=== PATIENT | female | born 1980 | race Caucasian/White ===

== ENCOUNTER 2017-04-09 12:57 | Observation (INO) | payer OTHER ==
[2017-04-09] MEDS ORDERED: HYDROmorphone 1 MG/ML 1 ML SYRINGE IVP STA (13:37)
[2017-04-09] MEDS ORDERED: ONDANSETRON 4 MG/2 ML VIAL IVP STA (13:37)
[2017-04-09] MEDS ORDERED: SODIUM CHLORIDE 0.9% 1,000 ML IV ONE (13:41)
[2017-04-09] MEDS: SODIUM CHLORIDE 0.9% 1,000 ML IV SCH (13:44)
[2017-04-09] MEDS ORDERED: ONDANSETRON 4 MG/2 ML VIAL IVP PRN (13:48)
[2017-04-09] MEDS ORDERED: HYDROmorphone 1 MG/ML 1 ML SYRINGE IV PRN (13:48)
[2017-04-09] MEDS ORDERED: NALOXONE 0.4 MG/ML 1 ML VIAL IV PRN (13:48)
--- NOTE | 2017-04-09 13:48 | ED ---
Female Urogenital HPI - General Chief complaint: OB/Uterine Contractions Stated complaint: 16 weeks /Bleeding/Abd Pain Time Seen by Provider: 04/09/17 13:20 Source: patient, RN notes reviewed, old records reviewed Mode of arrival: wheelchair Limitations: no limitations - History of Present Illness Initial comments: this is a 37-year-old female presents emergency Department chief complaint of vaginal bleeding and contractions for the past day. Patient reports this started at 10 a.m. She is currently 16 weeks . Patient ports that she is here on vacation visiting her after her mother's [facility]. Patient states that this is her third . She delivered her second at 5 months. Patient states that she was told by her HARDNESS INSPECTOR that she's had a placental tear approximately 3 weeks ago. Patient reports that she's had no fever or chills, dysuria or any other associated symptoms prior to the vaginal cramping and bleeding that started at 10 AM today. Patient does not have an OB/ INSTRUCTOR PSYCHIATRIC AIDE in the area. - Related Data Home Medications Medication Instructions Recorded Confirmed Nystatin 100,000 Unit/ml Susp 5 ml PO QID 04/09/17 04/09/17 [Mycostatin Oral Susp] Allergies Allergy/AdvReac Type Severity Reaction Status Date / Time latex Allergy Rash/Hives Verified 04/09/17 13:58 Review of Systems ROS Statement: Those systems with pertinent positive or pertinent negative responses have been documented in the HPI. ROS Other: All systems not noted in ROS Statement are negative. Past Medical History Past Medical History: No Reported History History of Any Multi-Drug Resistant Organisms: None Reported Past Surgical History: Section Past Psychological History: No Psychological Hx Reported Smoking Status: Never smoker Past Alcohol Use History: None Reported Past Drug Use History: None Reported General Exam - General Exam Comments Initial Comments: 37-year-old female. Patient appears extremely anxious and in discomfort. Limitations: no limitations General appearance: alert, in no apparent distress Head exam: Present: atraumatic, normocephalic, normal inspection Eye exam: Present: normal appearance, PERRL, EOMI. Absent: scleral icterus, conjunctival injection, periorbital swelling ENT exam: Present: normal exam, mucous membranes moist Neck exam: Present: normal inspection. Absent: tenderness, meningismus, lymphadenopathy Respiratory exam: Present: normal lung sounds bilaterally. Absent: respiratory distress, wheezes, rales, rhonchi, stridor Cardiovascular Exam: Present: regular rate, normal rhythm, normal heart sounds. Absent: systolic murmur, diastolic murmur, rubs, gallop, clicks GI/Abdominal exam: Present: soft, normal bowel sounds. Absent: distended, tenderness, guarding, rebound, rigid External exam: Absent: normal external exam Speculum exam: Absent: normal speculum exam By manual exam: Present: cervical motion tenderness, other (cervix is felt to be dilated. Appears to be foreign tissue within the vaginal canal. Speculum exam was not preformed. ). Absent: normal by manual exam Extremities exam: Present: normal inspection, full ROM, normal capillary refill. Absent: tenderness, pedal edema, joint swelling, calf tenderness Back exam: Present: normal inspection, full ROM Neurological exam: Present: alert, oriented X3, CN II-XII intact Psychiatric exam: Present: normal affect, normal mood Skin exam: Present: warm, dry, intact, normal color. Absent: rash Course Vital Signs 04/09/17 04/09/17 04/09/17 13:13 13:47 13:54 Temperature 97.6 F 98.9 F Pulse Rate 79 83 81 Respiratory 18 20 20 Rate Blood Pressure 95/51 99/53 98/57 O2 Sat by Pulse 100 97 97 Oximetry Medical Decision Making - Medical Decision Making this is a 37-year-old female presents emergency Department chief complaint of vaginal bleeding and contractions for the past day. Patient reports this started at 10 a.m. She is currently 16 weeks . Patient ports that she is here on vacation visiting her after her mother's [facility]. Patient states that this is her third . She delivered her second at 5 months. Patient states that she was told by her HARDNESS INSPECTOR that she's had a placental tear approximately 3 weeks ago. Patient reports that she's had no fever or chills, dysuria or any other associated symptoms prior to the vaginal cramping and bleeding that started at 10 AM today. mental exam she is felt to have a foreign body and patient does have cervical tenderness. Cervix appears to be dilated. Discussed this with Dr. Knight. Patient was given IV fluids and pain medication. She reports that she is feeling better. Dr. Knight discussed this with Dr. Cline agent HARDNESS INSPECTOR. Patient will be admitted upstairs to have a D&C and complete delivery of the fetus. - Lab Data Result diagrams: 04/09/17 13:35 Lab Results 04/09/17 Range/Units 13:35 WBC 19.7 H (3.8-10.6) k/uL RBC 3.72 L (3.80-5.40) m/uL Hgb 12.0 (11.4-16.0) gm/dL Hct 34.3 (34.0-46.0) % MCV 92.1 (80.0-100.0) fL MCH 32.3 (25.0-35.0) pg MCHC 35.0 (31.0-37.0) g/dL RDW 13.1 (11.5-15.5) % Plt Count 318 (150-450) k/uL Neutrophils % 87 % Lymphocytes % 8 % Monocytes % 3 % Eosinophils % 1 % Basophils % 0 % Neutrophils # 17.1 H (1.3-7.7) k/uL Lymphocytes # 1.6 (1.0-4.8) k/uL Monocytes # 0.6 (0-1.0) k/uL Eosinophils # 0.2 (0-0.7) k/uL Basophils # 0.0 (0-0.2) k/uL Disposition Clinical Impression: Miscarriage Disposition: ADMITTED IP TO THIS HOSP Condition: Good Referrals: None,Stated [Primary Care Provider] - 1-2 days Time of Disposition: 13:48
[2017-04-09 13:50] LABS: Basophils % (A) 0 %; CH 32.4; CHCM 35.3; Eosinophils # (A) 0.2 k/uL (0-0.7); Eosinophils % (A) 1 %; HCT 34.3 % (34.0-46.0); HDW 2.33; Luc # (Auto) 0.14; Luc % (Auto) 1; Lymphocytes # (A) 1.6 k/uL (1.0-4.8); Lymphocytes % (A) 8 %; MCH 32.3 pg (25.0-35.0); MCV 92.1 fL (80.0-100.0); Monocytes # (A) 0.6 k/uL (0-1.0); Monocytes % (A) 3 %; Neutrophils # (A) 17.1 k/uL (1.3-7.7); Neutrophils % (A) 87 %; RBC 3.72 m/uL (3.80-5.40); RDW 13.1 % (11.5-15.5); WBC 19.7 k/uL (3.8-10.6); WBC (Perox) 19.72
[2017-04-09 13:59] LABS: ALT 25 U/L (9-52); AST 18 U/L (14-36); Alkaline Phosphatase 84 U/L (38-126); Anion Gap 10 mmol/L; Blood Urea Nitrogen 9 mg/dL (7-17); Calcium 9.2 mg/dL (8.4-10.2); Carbon Dioxide 18 mmol/L (22-30); Chloride 108 mmol/L (98-107); Glucose 85 mg/dL (74-99); Non-African American GFR(MDRD) >60 (>60 ml/min/1.73 sqM); Potassium 3.9 mmol/L (3.5-5.1); Sodium 136 mmol/L (137-145); Total Bilirubin 0.5 mg/dL (0.2-1.3); Total Protein 6.3 g/dL (6.3-8.2)
[2017-04-09 14:34] VITALS: BMI 29.2
[2017-04-09 15:00] LABS: HCG,Quantitative Serum 28330.8 mIU/mL
--- NOTE | 2017-04-09 16:14 | P.HPOB ---
History of Present Illness H&P Date: 04/09/17 Chief Complaint: at 16 weeks vaginal bleeding and rupture of membranes This is a 37-year-old 3 [id number] at approximately 16 weeks that presented to the emergency department with complaints of rupture of membranes and vaginal bleeding. she noted the LOF this morning, while in town from [place] attending her [facility]. Patient stated upon arrival the contractions were severe and was given Dilaudid 1 mg which helped with the pain of the contractions. patient denies fevers chills nausea vomiting. she noted continued bleeding in the ED with more loss of fluid in addition. She states she recently found out she was and was told in [place] that she had a small placental tear. history is significant for a 24 week delivery of her last child 4 years ago. Review of Systems Constitutional: Reports as per HPI, Denies chills, Denies fever Past Medical History Past Medical History: No Reported History History of Any Multi-Drug Resistant Organisms: None Reported Past Surgical History: Section Past Anesthesia/Blood Transfusion Reactions: No Reported Reaction Past Psychological History: No Psychological Hx Reported Smoking Status: Current every day smoker Past Alcohol Use History: None Reported Past Drug Use History: None Reported - Past Family History Mother History Unknown: Yes Family Medical History: No Reported History Medications and Allergies Home Medications Medication Instructions Recorded Confirmed Type Nystatin 100,000 Unit/ml Susp 5 ml PO QID 04/09/17 04/09/17 History [Mycostatin Oral Susp] Allergies Allergy/AdvReac Type Severity Reaction Status Date / Time adhesive tape AdvReac Rash/Hives Verified 04/09/17 14:30 Exam Osteopathic Statement: *. No significant issues noted on an osteopathic structural exam other than those noted in the History and Physical/Consult. - Vital Signs Vital signs: Vital Signs Temp Pulse Resp BP Pulse Ox 04/09/17 14:30 98.7 F 80 18 106/82 99 04/09/17 13:54 98.9 F 81 20 98/57 97 04/09/17 13:47 83 20 99/53 97 04/09/17 13:13 97.6 F 79 18 95/51 100 Intake and Output 04/09/17 04/09/17 04/09/17 06:59 14:59 22:59 Other: Weight 68.039 kg Patient Weight 04/10/17 06:59 Weight 68.039 kg - OBG Physical Exam Breast: Not examined Abdomen: Soft nontender no guarding or rebound Abdomen: bowel sounds normal Vulva: No lesions Vulva: right: normal Vagina: Blood was noted in the vaginal vault fetus was noted in the vagina Cervix: Cervix was dilated to approximately 5 cm Uterus: Uterus was nontender and noted to be approximately 16 weeks size Adnexa: Not examined Results Result Diagrams: 04/09/17 13:35 04/09/17 13:35 Abnormal Lab Results - Last 24 Hours (Table) 04/09/17 04/09/17 Range/Units 13:35 13:35 WBC 19.7 H (3.8-10.6) k/uL RBC 3.72 L (3.80-5.40) m/uL Neutrophils # 17.1 H (1.3-7.7) k/uL Sodium 136 L (137-145) mmol/L Chloride 108 H (98-107) mmol/L Carbon Dioxide 18 L (22-30) mmol/L Albumin 3.4 L (3.5-5.0) g/dL Assessment and Plan (1) Complete Status: Acute Plan: Patient is admitted to labor and delivery Blood type is O+ program not indicated Discussion with the patient about the possibility of retained placenta and need for D&C Time with Patient: Greater than 30
[2017-04-09] MEDS ORDERED: MISOPROSTOL 200 MCG TAB PO STA (16:48)
[2017-04-09] MEDS ORDERED: MISOPROSTOL 200 MCG TAB VAGINAL STA (20:45)
[2017-04-10] MEDS ORDERED: MISOPROSTOL 200 MCG TAB VAGINAL ONE (01:00)
[2017-04-10] MEDS ORDERED: LACTATED RINGERS 1,000 ML IV SCH (01:00)
[2017-04-10] MEDS: SODIUM CHLORIDE 0.9% 1,000 ML IV SCH (01:37)
[2017-04-10 01:57] VITALS: RESP 15
[2017-04-10] MEDS ORDERED: LANOLIN CREAM 5 GM TUBE TOPICAL PRN (02:24)
[2017-04-10] MEDS ORDERED: diphenhydrAMINE 50 MG/ML 1 ML VIAL IVP PRN ×2 (02:24)
[2017-04-10] MEDS ORDERED: diphenhydrAMINE 50 MG CAP PO PRN (02:24)
[2017-04-10] MEDS ORDERED: diphenhydrAMINE 25 MG CAP PO PRN (02:24)
[2017-04-10] MEDS ORDERED: WITCH HAZEL 1 EACH MED..PAD TOPICAL PRN (02:24)
[2017-04-10] MEDS ORDERED: HYDROCORTISONE 2.5% RECTAL CREAM 30 GM TUBE RECTAL PRN (02:24)
[2017-04-10] MEDS ORDERED: SIMETHICONE 80 MG CHEWABLE PO PRN (02:24)
[2017-04-10] MEDS ORDERED: ACETAMINOPHEN TAB 325 MG TAB PO PRN (02:24)
[2017-04-10] MEDS ORDERED: IBUPROFEN 600 MG TAB PO PRN (02:24)
[2017-04-10] MEDS ORDERED: ZOLPIDEM 5 MG TAB PO PRN (02:24)
[2017-04-10] MEDS ORDERED: AMOXIC-POT CLAV 875-125MG 1 EACH TAB PO STA (02:28)
[2017-04-10] MEDS ORDERED: OXYTOCIN 20 UNITS/1000 ML NS 1,000 ML IV SCH (02:30)
[2017-04-10 02:33] VITALS: TEMP 99.3
[2017-04-10 04:01] VITALS: BP 100/55; PULSE 71
[2017-04-10] MEDS ORDERED: SENNOSIDES-DOCUSATE SODIUM 1 EACH TAB PO SCH (08:00)
--- NOTE | 2017-04-24 14:51 | P.DS ---
Providers Date of admission: 04/09/17 14:09 Expected date of discharge: 04/10/17 Attending physician: Jie Swift Consults: none Primary care physician: Stated None - Discharge Diagnosis(es) (1) Complete this is a 37yo @ 16 weeks that presented to [facility] ED, with c/o vaginal bleeding and ROM. upon exam in the ED, the baby was palpated in the vaginal vault. she was comfortable at the time of my consult as she was given dilaudid in the ED, bleeding had slowed considerable as well she was then transferred to OB and had a of a 16 demised fetus. placenta was delivered that night after 3 doses of cytotec. she was feeling good at that time and desired to be discharged home. she is from [place] and was anxious to get home Status: Acute Hospital Course: admitted from the ED to OB, with subsequent of 16 week demise. she was then treated with cytotec for spontaneous delivery of the placenta. bleeding was minimal at that time so she was discharged in stable condition. temperature prior to d/c was 99.1 and given she was traveling augmentin was given to the pt. she was to seed cone picker a Rx when she arrived in [place] in addition. Procedures: of 16 demise Patient Condition at Discharge: Good Plan - Discharge Summary New Discharge Prescriptions: No Action Nystatin 100,000 Unit/ml Susp [Mycostatin Oral Susp] 5 ml PO QID Discharge Medication List Nystatin 100,000 Unit/ml Susp [Mycostatin Oral Susp] 5 ml PO QID 04/09/17 [ History]
== END 2017-04-10 05:40 ==
LOC: EC 12:57 → 4FBP 14:09
PROVIDERS: ADMIT Obstetrics & Gynecology Obstetrics; ATTEND Obstetrics & Gynecology Obstetrics
DX: O03.9 Complete or unspecified spontaneous abortion without complication (principal); Z3A.16 16 weeks gestation of pregnancy; O09.522 Supervision of elderly multigravida, second trimester; Z91.040 Latex allergy status; F17.200 Nicotine dependence, unspecified, uncomplicated; O99.334 Smoking (tobacco) complicating childbirth; Z91.048 Other nonmedicinal substance allergy status
CPT/HCPCS: 96374; 96375; 99285; 36415; 86900; 86901; 88305; 80053; 87591; 87491; 85025; 86850; 84702; 88300; 87808; 87070; 59855; G0378 ×2; J2405; S0191 ×2; J1170; J2590; 87205

== ENCOUNTER 2023-02-25 20:47 | Emergency (ER) | payer OTHER ==
[2023-02-25 21:38] VITALS: PULSE 64
[2023-02-25] MEDS ORDERED: PROPARACAINE 0.5% OPHTH DROPS 15 ML BTL RIGHT EYE STA (22:17)
[2023-02-25] MEDS ORDERED: FLUORESCEIN STRIPS 1 MG STRIP RIGHT EYE ONE (22:19)
--- NOTE | 2023-02-25 22:31 | ED ---
General Adult HPI - General Chief complaint: ENT Stated complaint: pain in right eye Time Seen by Provider: 02/25/23 22:09 Source: patient, RN notes reviewed, old records reviewed Mode of arrival: ambulatory Limitations: no limitations - History of Present Illness Initial comments: 43-year-old female presenting for evaluation of irritation to the right eye with some drainage. Patient denies fever. Denies URI symptoms. She states she has some minimal blurry vision associated with this. - Related Data Home Medications Medication Instructions Recorded Confirmed Nystatin 100,000 Unit/ml Susp 5 ml PO QID 04/09/17 04/09/17 [Mycostatin Oral Susp] Previous Rx's Medication Instructions Recorded Erythromycin Ophth Oint [Romycin 1 applic RIGHT EYE QID #3.5 gm 02/25/23 Ophth Oint] Allergies Allergy/AdvReac Type Severity Reaction Status Date / Time adhesive tape AdvReac Rash/Hives Verified 04/09/17 14:30 Review of Systems ROS Statement: Those systems with pertinent positive or pertinent negative responses have been documented in the HPI. ROS Other: All systems not noted in ROS Statement are negative. Past Medical History Past Medical History: No Reported History History of Any Multi-Drug Resistant Organisms: None Reported Past Surgical History: Section Past Anesthesia/Blood Transfusion Reactions: No Reported Reaction Past Psychological History: No Psychological Hx Reported Smoking Status: Never smoker Past Alcohol Use History: None Reported Past Drug Use History: None Reported - Past Family History Mother History Unknown: Yes Family Medical History: No Reported History General Exam Limitations: no limitations General appearance: alert, in no apparent distress Head exam: Present: atraumatic, normocephalic Eye exam: Present: PERRL, other (There is some lateral conjunctival irritation and drainage. Pressure in the right eye is 10 and 11. There is no corneal abrasion or forcing uptake) Respiratory exam: Absent: respiratory distress Cardiovascular Exam: Present: regular rate, normal rhythm GI/Abdominal exam: Absent: distended Extremities exam: Present: normal inspection Course Vital Signs 02/25/23 21:35 Temperature 97.5 F L Pulse Rate 64 Respiratory 20 Rate Blood Pressure 143/82 O2 Sat by Pulse 100 Oximetry Medical Decision Making - Medical Decision Making Was pt. sent in by a medical professional or institution (, PA, RISK MODELER, urgent care, hospital, or residential...) When possible be specific @ -No Did you speak to anyone other than the patient for history (EMS, parent, family, police, friend...)? What history was obtained from this source @ -No Did you review nursing and triage notes (agree or disagree)? Why? @ -I reviewed and agree with nursing and triage notes Were old charts reviewed (outside hosp., previous admission, EMS record, old EKG, old radiological studies, urgent care reports/EKG's, residential records)? Report findings @ -No old charts were reviewed Differential Diagnosis (chest pain, altered mental status, abdominal pain women, abdominal pain men, vaginal bleeding, weakness, fever, dyspnea, syncope, headache, dizziness, GI bleed, back pain, seizure, CVA, palpatations, mental health, musculoskeletal)? @ Iritis, conjunctivitis, glaucoma, stye EKG interpreted by me (3pts min.). @ -As above X-rays interpreted by me (1pt min.). @ -None done CT interpreted by me (1pt min.). @ -None done U/S interpreted by me (1pt. min.). @ -None done What testing was considered but not performed or refused? (CT, X-rays, U/S, labs)? Why? @ -None What meds were considered but not given or refused? Why? @ -None Did you discuss the management of the patient with other professionals (professionals i.e. , PA, RISK MODELER, lab, RT, psych nurse, social insurance specialist, director call center sales, teacher, bank secrecy act officer, outpatient case manager)? Give summary @ -No Was smoking cessation discussed for >3mins.? @ -No Was critical care preformed (if so, how long)? @ -No Were there social determinants of health that impacted care today? How? (Homelessness, low income, unemployed, alcoholism, drug addiction, transportation, low edu. Level, literacy, decrease access to med. care, nursing home, rehab)? @ -No Was there de-escalation of care discussed even if they declined (Discuss DNR or withdrawal of care, Hospice)? DNR status @ -No What co-morbidities impacted this encounter? (DM, HTN, Smoking, COPD, CAD, Cancer, CVA, ARF, Chemo, Hep., AIDS, mental health diagnosis, sleep apnea, morbid obesity)? @ -None Was patient admitted / discharged? Hospital course, mention meds given and route, prescriptions, significant lab abnormalities, going to OR and other pertinent info. @ 43-year-old female with irritation to the lateral conjunctiva and some drainage. Patient has normal corneal exam, normal capillary reflex, normal intraocular pressures. She will be started on erythromycin ointment and should follow-up with her primary care physician. Undiagnosed new problem with uncertain prognosis? @ -No Drug Therapy requiring intensive monitoring for toxicity (Heparin, Nitro, Insul in, Cardizem)? @ -No Were any procedures done? @ -No Diagnosis/symptom? @ Conjunctivitis Acute, or Chronic, or Acute on Chronic? @ Acute Uncomplicated (without systemic symptoms) or Complicated (systemic symptoms)? @ Uncomplicated Side effects of treatment? @ -No Exacerbation, Progression, or Severe Exacerbation? @ -No Poses a threat to life or bodily function? How? (Chest pain, [place], [place], pneumonia, PE, COPD, DKA, ARF, appy, cholecystitis, CVA, Diverticulitis, Homicidal, Suicidal, threat to staff... and all critical care pts) @ -No Disposition Clinical Impression: Conjunctivitis of right eye Disposition: HOME SELF-CARE Condition: Good Instructions (If sedation given, give patient instructions): Conjunctivitis (ED) Prescriptions: Erythromycin Ophth Oint [Romycin Ophth Oint] 1 applic RIGHT EYE QID #3.5 gm Is patient prescribed a controlled substance at d/c from ED?: No Referrals: None,Stated [Primary Care Provider] - 1-2 days Time of Disposition: 22:28
[2023-02-25 22:44] VITALS: BP 114/69; RESP 16; TEMP 97.8
== END 2023-02-25 22:43 | disposition home or self-care (01) ==
LOC: EC 20:47
DX: H10.9 Unspecified conjunctivitis (principal); Z91.048 Other nonmedicinal substance allergy status
CPT/HCPCS: 99283